=== PATIENT | female | born 1970 | race Caucasian/White ===

== ENCOUNTER 2022-03-16 22:14 | Emergency (ER) | payer SELFPAY ==
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
[2022-03-16 22:37] VITALS: BP 124/88; PULSE 88; RESP 22; TEMP 37; O2SAT 99
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
== END 2022-03-16 23:08 | disposition left against medical advice (07) ==
PROVIDERS: Emergency Provider Physician Assistant
DX: M79.604 Pain in right leg (principal); V09.9XXA Pedestrian injured in unspecified transport accident, initial encounter; Z53.29 Procedure and treatment not carried out because of patient's decision for other reasons; F10.10 Alcohol abuse, uncomplicated; R45.1 Restlessness and agitation
CPT/HCPCS: 99285; 99283

== ENCOUNTER 2022-06-26 00:38 | Outpatient (CLI) | payer MEDICAID, SELFPAY ==
--- NOTE | 2022-06-26 08:30 | DI.MAMMO_ITS ---
Exam(s) MAMMO SCREENING EXAM: MAMMO SCREENING CLINICAL HISTORY: screening,Z12.39 TECHNIQUE: Mammograms were interpreted according to the usual protocol including computer analysis w ith CAD system, tomosynthesis and C-view imaging. COMPARISON: [facility] MAMMO DIAGNOSTIC TAMARA BILATERAL from 10/28/2018 US US BREAST DIAGNOSTIC RIGHT LIMITED from 02/26/2020 [facility] MAMMO DIAGNOSTIC TAMARA BILATERAL from 02/26/2020 MG Tamara Biopsy, RLM from 03/05/2020 FINDINGS: The breasts are composed of scattered fibroglandular densities, Breast Density category B. No suspicious masses or suspicious microcalcifications are seen. A nodule biopsy marker clip is agai n noted in the central right breast. It appears slightly smaller compared to prior exams. No skin thickening or abnormal axillary lymph nodes are seen. There has been no significant change from prior exams. IMPRESSION: BI-RADS Cat 2 - Benign Findings Yearly screening mammography is recommended. Breast Density - Category B, scattered fibroglandular densities. A negative radiographic report should not delay biopsy if a dominant or clinically suspicious mass is present. Up to ten percent of cancers are not identified on mammography. A negative report may reinforce clinical impression. Adenosis and dense breasts may obscure an underlying neoplasm. False positive reports average 6 to 10%. Patient will receive a letter notifying them of these results.
== END 2022-06-26 00:58 ==
LOC: DI 00:38
PROVIDERS: PCP Nurse Practitioner Family; Visit Provider Nurse Practitioner Family
DX: Z12.31 Encounter for screening mammogram for malignant neoplasm of breast (principal)
CPT/HCPCS: 77063; 77067

== ENCOUNTER 2022-09-12 02:00 | Outpatient (CLI) | payer MEDICAID, SELFPAY ==
[2022-09-12 12:54] LABS: Abs Immature Grans 0.03 10^3/uL (0.0-0.06); Absolute Basophil Count 0.08 10^3/uL (0.0-0.2); Absolute Eosinophil Count 0.18 10^3/uL (0.0-0.7); Absolute Lymphocyte Count 1.93 10^3/uL (1.2-3.4); Absolute Monocyte Count 0.51 10^3/uL (0.1-0.8); Absolute Neutrophil Count 4.74 10^3/uL (1.2-6.7); Basophils % 1.1; Eosinophils % 2.4; HCT 42.3 % (36.0-46.0); HGB 14.4 g/dL (11.2-15.7); Immature Grans % 0.4; Lymphocytes % 25.8; MCH 31.8 pg (27.0-33.0); MCV 93 fL (80-95); MPV 10.7 fL (8.0-11.0); Monocytes % 6.8; Neutrophils % 63.5; Platelet Count 297 10^3/uL (130-400); RBC 4.53 10^6/uL (3.93-5.22); RDW 13.9 % (11.7-14.6); RDW-SD 47.4 fL; WBC 7.47 10^3/uL (4.4-10.8)
[2022-09-12 14:53] LABS: ALT 25 U/L (14-59); AST 15 U/L (15-37); Albumin 3.7 g/dL (3.4-5.0); Alkaline Phosphatase 48 U/L (46-116); BUN 23 mg/dL (7-18); Bilirubin, Total 0.5 mg/dL (0.2-1.0); Calcium 9.1 mg/dL (8.5-10.1); Calculated LDL 67 mg/dL (<100); Chloride 106 mmol/L (98-107); Cholesterol 161 mg/dL (<200); Estimated GFR 68.21 (mL/min/1.73m2); Glucose 103 mg/dL (74-106); HDL Cholesterol 75 mg/dL (40-60); Potassium 4.6 mmol/L (3.5-5.1); Sodium 141 mmol/L (136-145); TSH (W/Ref FT4) 2.17 uIU/mL (0.36-3.74); Total Protein 7.3 g/dL (6.4-8.2); Triglyceride 99 mg/dL (<150)
== END 2022-09-12 02:01 | disposition home or self-care (01) ==
LOC: LOS 02:00
PROVIDERS: PCP Nurse Practitioner Family; Visit Provider Nurse Practitioner Family
DX: Z13.1 Encounter for screening for diabetes mellitus (principal); F32.A Depression, unspecified; F41.9 Anxiety disorder, unspecified; Z76.89 Persons encountering health services in other specified circumstances; Z87.898 Personal history of other specified conditions; Z13.220 Encounter for screening for lipoid disorders
CPT/HCPCS: 36415; 80053; 80061; 84443; 85025

== ENCOUNTER 2023-05-03 06:16 | Day surgery (SDC) | payer MEDICAID, SELFPAY ==
--- NOTE | 2023-05-02 18:41 | HPE_ITS ---
Assessment and Plan Assessment and plan (1) Screen for colon cancer: Status: Acute Assessment and plan: We reviewed the plan for a screening colonoscopy again today, including the risks and the benefits of the procedure. History of Present Illness History of Present Illness Chief Complaint: screening colonoscopy Narrative: Narda is 52 years old with average risk for colon cancer. She needs her first screening colonoscopy. Since her last visit in November, she did have right-sided shoulder surgery, which went well and she is made a full recovery. There have been no other significant interval changes since her last visit. PFSH All Active Problems Cervicalgia (Acute) Screen for colon cancer (Acute) ADHD (attention deficit hyperactivity disorder), combined type (Acute) Screening for hyperlipidemia (Acute) 08/2022 labs: unable to calculate 10-year ASCVD risk due to LDL <70 Right shoulder pain (Acute) Bipolar disorder (Acute) Per pt report, previous dx from Psychiatry Chronic neck pain (Acute) MRI 08/08/18 - Worsening cervical spondylosis since 2011 causing mild canal stenosis at C5/6 and C6/7. Multilevel foraminal stenoses including mod bilat foraminal stenoses at C4/5 and mild to mod bilat foraminal stenoses at C5/6 PTSD (post-traumatic stress disorder) (Acute) PCOS (polycystic ovarian syndrome) (Acute) Gastroesophageal reflux disease (Chronic) EGD 11/06/17 ([facility]): gastritis Medical History Bursal cyst of olecranon Alcohol use disorder 05/2022: Pt reports she quit in 2014 Surgical History History of arthroscopy of right shoulder (12/22/22) [facility] Dr Vanegas acromioplasty, biceps tenodesis Hx of right breast biopsy (03/05/20) Following abnormal mammo 02/26/20. No carcinoma seen. Recommended annual mammo Status post ear surgery Status post anterior cruciate ligament surgery (04/07/20) Status post ovarian cystectomy Status post appendectomy Family History Maternal Grandfather Cancer Liver Father Diabetes Alcohol use disorder Dementia Bipolar disorder Mother Substance use disorder Bipolar disorder Social History Smoking/Tobacco Use Status: Former Tobacco Use Quit Date: 03/19/98 Tobacco: How many years used: 12 Smoking risk assessment performed?: Yes Alcohol Intake: former Details: 05/2022: Pt reports she had EtOH issue in the past; quit 2014 Drug use: Never Substance use type: does not use and other Adopted: No Caregiver/Support person: No Foster care: No Household members: none Housing: house Number of Children: 1 Education Level: college current occupation: unemployed Pets and animals: Yes Pets and animals: cat(s) and dog(s) Sexually active: No Do you think of yourself as: straight/heterosexual Current gender identity: female What is your relationship status?: never How often do you talk on the phone with friends or family?: once per week How often do you get together with friends or relatives?: never Do you belong to any clubs or organized social groups?: no Panel score (0-1 are the most socially isolated patients): 0 What type of physical activity do you participate in: walking Duration: 15-30 minutes/day Frequency: 1-2 times per week Maricarmen/Spiritism: Confucianism Special maricarmen needs: No Seatbelt use: always Helmet use: Yes Do you feel safe at home: Yes Do you feel safe in your relationship?: Yes Meds Allergies and Home Medications Allergies Allergy/AdvReac Type Severity Reaction Status Date / Time No Known Allergies Allergy Verified 05/03/23 06:36 Home Medications Medication Instructions Recorded Confirmed Type famotidine 20 mg tablet 20 mg PO BID #180 tab-caps 06/07/22 05/03/23 Rx aripiprazole 5 mg tablet (Abilify) 5 mg PO DAILY #30 tabs 08/02/22 05/03/23 Rx dextroamphetamine-amphetamine ER 20 mg PO DAILY 10/06/22 05/03/23 History 20 mg 24hr capsule,extend release (Adderall XR) gabapentin 300 mg capsule See Rx Instructions PO TID #360 02/13/23 05/03/23 Rx caps cyclobenzaprine 5 mg tablet 5 mg PO TID PRN muscle spasm 04/12/23 05/03/23 History Exam Const General: cooperative, healthy appearing and not in acute distress Neck Neck: normal visual inspection, no lymphadenopathy and supple Resp Effort & Inspection: normal respiratory effort Auscultation: clear to auscultation bilaterally Cardio Jugular venous pressure: no JVD Rate: regular rate Rhythm: regular rhythm Heart Sounds: S1 normal and S2 normal GI Inspection: normal to inspection Palpation: soft, no guarding, no hernias and nontender Percussion: normal to percussion Auscultation: normal bowel sounds Neuro General: patient alert, patient awake and patient oriented x3 Psych Appearance: grossly normal
--- NOTE | 2023-05-02 18:43 | COLE_ITS ---
Date of service: 05/03/23 Time of Service: 08:40 Colonoscopy Report Date of procedure: 05/03/23 Pre-op diagnosis general: screening colonoscopy Post-op diagnosis procedure note: other (Diverticulosis, incomplete colonoscopy) Procedure: Incomplete colonoscopy Surgeon: John Garcia Anesthesia Type: General:No Airway Estimated blood loss (mL): 0 Pathology: none sent Complications: None Disposition: same day Indications: Narda is a 52 year old woman who is here for her first screening colonocsopy Prep: Miralax/Dulcolax Procedure Start Time: 07:58 Procedure End Time: 08:29 Findings: Incomplete colonoscopy due to inadequate preparation Procedure Description: After the induction of anesthesia, and with the patient in left lateral decubitus position, I began by performing an external anorectal exam.? Perineum and skin were normal, as was the anal verge.? There was no evidence of external hemorrhoids.? Next, I performed a digital rectal exam.? I did not appreciate any abnormal findings.? Next, I advanced a colonoscope into the rectal vault.? I performed retroflexion.? There are grade 1 internal hemorrhoids.? Using insufflation, I then advanced the colonoscope beyond the rectal folds and into the sigmoid colon before advancing towards the cecum.? The quality of the prep was poor.? There was some cecal diverticulosis. During introduction of the camera, the suction port became clogged with stool. The colonoscope was exchanged for a new one. Again, it was carefully advanced through the rectum and sigmoid colon, and over to the cecum. The ileocecal valve was clearly identified. But there was significant contamination with stool along the entire length of the colon, with pooling of solid and liquid stool in the cecal vault. It was impossible to identify the confluence of the tenia, or the origin of the appendix. Despite several attempts at irrigation and evacuation, adequate visualization was not obtained. Furthermore, the second scope also became clogged with stool. At this point, it was clear that we would not be able to conduct an adequate examination of the colon. Therefore, the camera was carefully retracted along the length of the colon and removed. Patient was then allowed awaken from the anesthetic and transferred back to the day surgery unit. [place] Bowel Prep [place] Bowel Prep Right Colon: 0 Left Colon: 0 Transverse Colon: 1 Total Score: 1
--- NOTE | 2023-05-02 18:43 | W.PM.DSUDISC ---
Date of service: 05/03/23 Time of Service: 08:38 Discharge Plan Disposition Patient Disposition: Home Condition: Good Discharge Details Reason For Visit: screening colonoscopy Attending Provider: John Garcia Primary Care Provider: Fadi Cade Home Meds and New Rx's Prescriptions: Continued famotidine 20 mg tablet 20 mg PO BID Qty: 180 3RF aripiprazole [Abilify] 5 mg tablet 5 mg PO DAILY Qty: 30 0RF gabapentin 300 mg capsule See Rx Instructions PO TID Qty: 360 3RF Rx Instructions: t1 tab BID, then t2 tabs qhs orally three times a day; dextroamphetamine-amphetamine [Adderall XR] 20 mg capsule,extended release 24hr 20 mg PO DAILY Rx Instructions: 10/06/22 per Nasrin NOTE 09/20/22 JUANA cyclobenzaprine 5 mg tablet 5 mg PO TID PRN (Reason: muscle spasm) Discharge Instructions Additional Instructions: deidra Laboy to tell you that we were not able to complete your colonoscopy today. Although we could get the camera to where we need to be, the contamination with stool made it impossible to do a complete and thorough evaluation. You may have a little bit of gas left behind from the colonoscopy itself, this typically causes a little bit of cramping, but passing the gas at your backside is the best way to relieve it. My office will be in touch regarding rescheduling the colonoscopy, and I think we should be very careful to maintain a clear liquid diet leading up to it. It would probably be beneficial to actually do 2 full days of clear liquids prior to taking the medications for your preparation. 1. If tolerated, consume a soft, low fiber diet for 1-2 days. 2[address] Do not drive, drink alcohol, operate machinery, make critical decisions, or do activities that require coordination or balance for 24 hours. 3. Because air was put into your colon during the procedure, expelling air from your rectum (passing gas or farting) is normal. 4. You may not have a bowel movement for 1-3 days because of the colonoscopy prep. This is normal. 5. Go directly to the emergency room if you notice any of the following: Develop chills (warm to touch), or if you have a thermometer and your temperature is above 101 Difficulty breathing or difficultly swallowing Persistent vomiting Severe abdominal pain, other than gas cramps Severe chest pain Black, tarry stools Any bleeding ? exceeding one tablespoon 6. Call your physician if the site where your intravenous was started becomes red, swollen, painful, and warm to touch. 7. Your physician has reviewed your pre-procedure medications. Please continue to take those medications as previously ordered. You will be given specific information/education regarding any changes to your medications before leaving. Activity:: Activity as Tolerated Diet:: As Tolerated Discharge Orders Discharge Orders: Discharge Order (Routine); Ordered 05/02/23 Ordered By: John Garcia DS: Diagnosis Discharge Diagnosis (1) Screen for colon cancer: Status: Acute Asessment and Plan: Incomplete colonoscopy due to inadequate bowel prep, will be rescheduled
[2023-05-03 06:38] VITALS: BP 139/89; PULSE 77; RESP 16; TEMP 36.6; O2SAT 96
[2023-05-03] MEDS: Lactated Ringers 1,000 ML 80 ML IV (06:43)
--- NOTE | 2023-05-03 07:45 | W.ANESPRE ---
General Info Date of Service Date Performed: 05/03/23 Height: 5 ft 5.5 in Weight: 85.6 kg Body Mass Index (BMI): 30.9 Surgical Procedure: Operation Date: 05/03/23 07:35 Proposed Procedure Side Surgeon jaylene Garcia MD Meds Allergies and Home Medications Allergies Allergy/AdvReac Type Severity Reaction Status Date / Time No Known Allergies Allergy Verified 05/03/23 06:36 Home Medication Medication Instructions Recorded famotidine 20 mg tablet 20 mg PO BID #180 tab-caps 06/07/22 aripiprazole 5 mg tablet (Abilify) 5 mg PO DAILY #30 tabs 08/02/22 dextroamphetamine-amphetamine ER 20 mg PO DAILY 10/06/22 20 mg 24hr capsule,extend release (Adderall XR) gabapentin 300 mg capsule See Rx Instructions PO TID #360 02/13/23 caps cyclobenzaprine 5 mg tablet 5 mg PO TID PRN muscle spasm 04/12/23 Current Visit Medications: Current Medications Generic Name Dose Route Start Last Admin Trade Name Alpeshq PRN Reason Stop Dose Admin Hyoscyamine Sulfate 0.125 mg 05/02/23 18:45 Hyoscyamine 0.125 Mg Sl/Oral/Chew SL 06/01/23 18:44 DIRECTED PRN Ringer's Solution 1,000 mls @ 80 mls/hr 05/03/23 06:00 05/03/23 06:43 IV 05/03/23 23:59 80 mls/hr INFUSION RY Administration IV Miscellaneous Supplies 1 each 05/03/23 06:00 Iv Access IV 05/03/23 23:59 DIRECTED RY Ondansetron HCl 4 mg 05/02/23 18:45 Ondansetron 4 Mg/2 Ml Vial IVP 06/01/23 18:44 Q4H PRN PRN Nausea / Vomiting Sodium Chloride 0 ml 05/03/23 06:00 Normal Saline Flush 10 Ml Syr IV 05/03/23 23:59 PRN PRN Sodium Chloride 0 ml 05/03/23 06:00 Normal Saline 10 Ml Vial IJ 05/03/23 23:59 DIRECTED PRN Sterile Water 0 ml 05/03/23 06:00 Water,Injection,Sterile 10 Ml Vial IJ 05/03/23 23:59 DIRECTED PRN PFSH Active Problems Active Problems: Problem Status Onset Code Cervicalgia M54.2 Screen for colon cancer Z12.11 ADHD (attention deficit hyperactivity disorder), combined type F90.2 Screening for hyperlipidemia Z13.220 Right shoulder pain M25.511 Bipolar disorder F31.9 Chronic neck pain M54.2, G89.29 PTSD (post-traumatic stress disorder) F43.10 PCOS (polycystic ovarian syndrome) E28.2 Gastroesophageal reflux disease K21.9 Medical History Medical History Bursal cyst of olecranon Alcohol use disorder 05/2022: Pt reports she quit in 2014 Medical History Comments:: Pt. states no potential triggers for PTSD Surgical History Surgical History History of arthroscopy of right shoulder (12/22/22) [facility] Dr Vanegas acromioplasty, biceps tenodesis Hx of right breast biopsy (03/05/20) Following abnormal mammo 02/26/20. No carcinoma seen. Recommended annual mammo Status post ear surgery Status post anterior cruciate ligament surgery (04/07/20) Status post ovarian cystectomy Status post appendectomy Tobacco Smoking/Tobacco Use Status: Former Tobacco Use Passive smoking exposure: Yes Alcohol Alcohol Intake: former Details: 05/2022: Pt reports she had EtOH issue in the past; quit 2014 Substance Use Substance use: Never Substance use type: does not use and other Vital Signs and Lab Results Vital Signs Most Recent Vital Signs in EMR: Most Recent Vital Signs Temp Pulse Resp BP Pulse Ox 36.6 C 77 16 139/89 96 05/03/23 06:38 05/03/23 06:38 05/03/23 06:38 05/03/23 06:38 05/03/23 06:38 Lab Results Blood Type / Crossmatch: No Data to Display Complete Blood Count: No Data to Display Complete Metabolic Panel: No Data to Display Liver Function Panel: No Data to Display Coagulation Panel: No Data to Display Cardiac Panel: No Data to Display Arterial Blood Gas: No Data to Display Venous Blood Gas: No Data to Display Pancreas Panel: No Data to Display Thyroid Panel: No Data to Display Infectious Disease: No Data to Display Blood Cultures: No Data to Display Toxicology Panel: No Data to Display Panel: No Data to Display Anesthesia Assessment and Plan Anesthesia History Personal History: No History of Anesthesia Complications Family History: No Family History of Anesthesia Complications Exercise Tolerance Exercise Tolerance: Metabolic Equivalents>4 Pertinent Negatives Pertinent Negatives: No Symptoms of GERD, No Major Cardiovascular Symptoms or Complaints and No Major Pulmonary Symptoms or Complaints Cardiac & Pulmonary Exam Cardiac Exam: Normal S1/S2 Heart Sounds Pulmonary Exam: Clear Bilateral Breath Sounds Implantable Cardiac Device Does patient have a Pacemaker or an ICD?: No Airway Exam Known Difficult Airway: No Mallampati Class: 1 Mouth Opening: Normal (> 3cm) Thyromental Distance: Greater than 3 cm Neck Range of Motion: Full ROM Neck Circumference: Normal Teeth Condition: Normal Dentition ASA Classification ASA Score: ASA 2 Emergency Case?: No NPO Status NPO Status: NPO Clears >2 hours, Solids >8 hours Status Status: Not Relevant due to Medical History Anesthesia Plan Resuscitation Status: Full Code Anesthesia Technique: General Anesthesia Airway Planned: Natural Airway Monitors Used: Standard Monitors
[2023-05-03 07:47] VITALS: BMI 30.9
[2023-05-03 08:36] VITALS: BP 129/90; PULSE 82; RESP 16; TEMP 36.5; O2SAT 98
--- NOTE | 2023-05-03 08:45 | W.ANESPOSTOP ---
Postoperative Evaluation Date, Time and Location Date Performed: 05/03/23 Time Performed: 08:45 Patient Location: Day Surgery Unit Vital Signs Most Recent Imported Vital Signs: Most Recent Vital Signs Temp Pulse Resp BP Pulse Ox 36.5 C 82 16 129/90 98 05/03/23 08:36 05/03/23 08:36 05/03/23 08:36 05/03/23 08:36 05/03/23 08:36 Pain Score Most Recent Pain Score: Most Recent Pain Score Pain Level 0 05/03/23 08:36 Assessment Mental Status: Awake (Alert & Oriented to Patient Baseline) Airway and Respiratory Function: Patent airway with normal (patient baseline) respiratory exam Cardiovascular Function: Hemodynamically Stable Hydration Status: Adequately Hydrated Nausea & Vomiting: No Nausea or Vomiting Pain: Pt. Denies Any Pain Peripheral Nerve Block: Patient did not receive a nerve block Postoperative Comments:: Inadequate bowel prep. Procedure aborted
[2023-05-03 09:02] VITALS: BP 128/83; PULSE 72; RESP 16; TEMP 36.4; O2SAT 96
== END 2023-05-03 09:26 | disposition home or self-care (01) ==
LOC: SUR 06:16
PROVIDERS: PCP Family Medicine; Visit Provider Surgery
PROC: 0DJD8ZZ Inspection of Lower Intestinal Tract, Via Natural or Artificial Opening Endoscopic (ICD-10-PCS; CPT 45378; principal; 2023-05-03 07:30)
DX: Z12.11 Encounter for screening for malignant neoplasm of colon (principal)
CPT/HCPCS: 45378; J2001; J2704

== ENCOUNTER 2023-06-15 09:08 | Day surgery (SDC) | payer MEDICAID, SELFPAY ==
--- NOTE | 2023-06-14 14:42 | W.COLOREPORT ---
Date of service: 06/15/23 Time of Service: 11:28 Colonoscopy Report Date of procedure: 06/15/23 Pre-op diagnosis general: incomplete CE for CRC screening Post-op diagnosis procedure note: same (alexander- diverticula/ grade 2 internal hemorrhoids/ulceration of the right colon) Procedure: Crohn's disease versus other Surgeon: Cynthia Cabrales Anesthesia Type: General:No Airway Pathology: other Complications: None Disposition: same day Prep: Miralax/Dulcolax Retraction Time: 35 Findings: ulcerations from cecum- 70cm. Procedure Description: After informed consent was obtained the patient was taken to the procedure room and placed in a left decubitous position. Monitors were applied and a time out was done. The patients name, date of , procedure, allergies to medications and metal in their body was reviewed. The patient was then sedated. Once sedated and comfortable a rectal exam was done. External exam was normal. Internal exam revealed a normal sphincter tone and no palpable masses. The scope was then introduced and retrofelexed. Grade II internal hemorrhoids x 3 columns were identified. The scope was then advanced to the cecum with difficulty. The colon is very tortuous and redundant. The TI and appendiceal orifice were identified. From the cecum to 70 cm there were patchy areas of ulceration and erythema. This tissue was very firm and woody. Multiple biopsies are taken. The tissue was quite friable. I am unable to intubate the terminal ileum. Patient does have alexander diverticula from the sigmoid all the way to the cecum. There are multiple diverticula that have inspissated stool. There is no signs of bleeding or infection. There are no polyps visualized today. The scope was then slowly retracted over 35 minutes back into the rectum. The scope was removed and the patient was woken up and taken back to Same day surgery in stable condition. The patient will have lab work and a CT today. The patient tolerated the procedure well and there were no immediate complications. Follow up: The patient should follow up in clinic next Sunday to review biopsy's and develop a treatment plan.
--- NOTE | 2023-06-14 14:43 | PDOC.DSDIS_ITS ---
Date of service: 06/15/23 Time of Service: 11:32 Discharge Plan Disposition Patient Disposition: Home Condition: Good Discharge Details Reason For Visit: colon cancer screening Attending Provider: Cynthia Cabrales Primary Care Provider: Fadi Cade Home Meds and New Rx's Prescriptions: Continued aripiprazole [Abilify] 5 mg tablet 5 mg PO DAILY Qty: 30 0RF gabapentin 300 mg capsule See Rx Instructions PO TID Qty: 360 3RF Rx Instructions: t1 tab BID, then t2 tabs qhs orally three times a day; cyclobenzaprine 5 mg tablet 5 mg PO TID PRN (Reason: muscle spasm) famotidine 20 mg tablet 20 mg PO BID Qty: 180 3RF dextroamphetamine-amphetamine [Adderall XR] 20 mg capsule,extended release 24hr 30 mg PO DAILY trazodone 50 mg tablet 25 mg PO DIRECTED Patient Comments: TAKE 1/2 TABLET BY MOUTH EVERY NIGHT AT BEDTIME NEEDED Discontinued bisacodyl [Dulcolax (bisacodyl)] 5 mg tablet,delayed release (DR/EC) 5 mg PO ONCE Qty: 8 0RF Rx Instructions: Take per colonoscopy instructions provided by ordering providers office polyethylene glycol 3350 17 gram/dose powder 17 g PO ONCE Qty: 238 0RF Rx Instructions: Take per colonoscopy instructions provided by ordering providers office Discharge Instructions Additional Instructions: DSU Colonoscopy Post- Op Instructions Instructions for Everyone who is given Anesthesia: For your safety, please do the following for the next twenty-four (24) hours: *Do Not operate a motor vehicle (car, truck, motorcycle, etc.) *Do Not drink alcoholic beverages or use any recreational drugs for the first 24 hours or while taking pain medications. The medications in your body may have a reaction that can be dangerous. *Do Not make any important decisions or sign any important papers. Findings: Diverticulosis: It is recommended that you start a fiber supplement daily such as Metamucil or Citrucel Ulcerations of colon: Crohn's vs cancer Follow-up with Dr. Cabrales June 1. No lifting over 20 pounds or strenuous activity for the first 24 hours after your procedure. After 24 hours there are no restrictions on your activity but you may feel fatigued for a few days. 2. After you arrive home you may have a light meal and return to your normal diet as you can tolerate it without feeling sick to your stomach. 3. You may have a bloated, gaseous feeling in your belly (abdomen) after a colonoscopy. Passing gas and belching will help. Walking or lying down on your left side with your knees flexed may relieve the discomfort. Call the office at [phone] (Office) or [phone] (Hospital) right away if you notice any of the following: a.Vomiting of blood or ?coffee ground stools?. b.Rectal bleeding 1Tbsp, blood clots or continuous bleeding. c.Severe belly (abdominal) pain. d.A hard distended belly (abdomen) and an inability to pass gas. 4. Please don?t expect to have a normal BM (bowel movement) for 2-3 days after your procedure. 5. If there are questions regarding the findings of your procedure, please contact your doctor 6. If you are unable to contact your doctor with a problem, contact the hospital at [phone]. 7. Continue all your regular medications unless directed otherwise. I understand the above instructions and have no questions. Signature of Patient or Adult Escort Name of Responsible Adult Escort Signature of Nurse Date/Time Stand Alone Forms: Anesthesia Discharge InstGiuliano, Humza Mendoza (DSU) Activity:: See above Diet:: See above Discharge Orders Discharge Orders: Discharge Order (Routine); Ordered 06/15/23 Ordered By: Cynthia Cabrales DS: Diagnosis Discharge Diagnosis (1) PTSD (post-traumatic stress disorder): Status: Acute (2) Bipolar disorder: Status: Acute (3) ADHD (attention deficit hyperactivity disorder), combined type: Status: Acute (4) PCOS (polycystic ovarian syndrome): Status: Acute (5) Gastroesophageal reflux disease: Status: Chronic (6) Screen for colon cancer: Status: Acute Asessment and Plan: The patient is seen and examined after their colonoscopy.? The patient has been able to pass gas.? They are not having abdominal pain.? They have been able to tolerate liquids and a snack.? They do not have any nausea or vomiting.? They are not having any chest pain or shortness of breath.??? They are not having any rectal bleeding. Their vital signs have been stable-see nursing notes. We discussed findings during their colonoscopy, and any biopsies that were done/polyps that were removed. The patient will be sent a letter with any biopsy results, and when to repeat the colonoscopy.-see discharge instructions. Patient was given explicit instructions to follow-up regarding colonoscopy-refer to discharge instructions.? We reviewed resumption of medications. Patient verbalized understanding and discharged in stable and satisfactory c ondition- See nursing notes. (7) Borderline personality disorder: (8) Alcohol use disorder: (9) Screening for malignant neoplasm of colon performed: Status: Acute (10) Pancolonic diverticulosis: Status: Acute (11) Aphthous ulceration of colon: Status: Acute (12) Grade II internal hemorrhoids: Status: Acute
[2023-06-15 09:48] VITALS: BP 136/93; PULSE 87; RESP 16; TEMP 36.6; O2SAT 97
[2023-06-15] MEDS: Lactated Ringers 1,000 ML 80 ML IV (09:52)
--- NOTE | 2023-06-15 09:54 | ANES.PREOP_ITS ---
General Info Date of Service Date Performed: 06/15/23 Height: 5 ft 5 in Weight: 83.9 kg Body Mass Index (BMI): 30.7 Surgical Procedure: Operation Date: 06/15/23 09:50 Proposed Procedure Side Surgeon jaylene Cabrales, DO Meds Allergies and Home Medications Allergies Allergy/AdvReac Type Severity Reaction Status Date / Time No Known Allergies Allergy Verified 06/15/23 09:28 Home Medication Medication Instructions Recorded aripiprazole 5 mg tablet (Abilify) 5 mg PO DAILY #30 tabs 08/02/22 gabapentin 300 mg capsule See Rx Instructions PO TID #360 02/13/23 caps cyclobenzaprine 5 mg tablet 5 mg PO TID PRN muscle spasm 04/12/23 famotidine 20 mg tablet 20 mg PO BID #180 tab-caps 06/11/23 dextroamphetamine-amphetamine ER 30 mg PO DAILY 06/13/23 20 mg 24hr capsule,extend release (Adderall XR) trazodone 50 mg tablet 25 mg PO DIRECTED 06/14/23 Current Visit Medications: Current Medications Generic Name Dose Route Start Last Admin Trade Name Freq PRN Reason Stop Dose Admin Hyoscyamine Sulfate 0.125 mg 06/15/23 02:35 Hyoscyamine 0.125 Mg Sl/Oral/Chew SL 07/15/23 02:34 DIRECTED PRN Ringer's Solution 1,000 mls @ 80 mls/hr 06/15/23 06:00 06/15/23 09:52 IV 06/15/23 23:59 80 mls/hr INFUSION RY Administration IV Miscellaneous Supplies 1 each 06/15/23 06:00 Iv Access IV 06/15/23 23:59 DIRECTED RY Ondansetron HCl 4 mg 06/15/23 02:35 Ondansetron 4 Mg/2 Ml Vial IVP 07/15/23 02:34 Q4H PRN PRN Nausea / Vomiting Sodium Chloride 0 ml 06/15/23 06:00 Normal Saline Flush 10 Ml Syr IV 06/15/23 23:59 PRN PRN Sodium Chloride 0 ml 06/15/23 06:00 Normal Saline 10 Ml Vial IJ 06/15/23 23:59 DIRECTED PRN Sterile Water 0 ml 06/15/23 06:00 Water,Injection,Sterile 10 Ml Vial IJ 06/15/23 23:59 DIRECTED PRN [facility] Active Problems Active Problems: Problem Status Onset Code Screening for malignant neoplasm of colon performed Z12.11 Cervicalgia M54.2 Screen for colon cancer Z12.11 ADHD (attention deficit hyperactivity disorder), combined type F90.2 Screening for hyperlipidemia Z13.220 Right shoulder pain M25.511 Bipolar disorder F31.9 Chronic neck pain M54.2, G89.29 PTSD (post-traumatic stress disorder) F43.10 PCOS (polycystic ovarian syndrome) E28.2 Gastroesophageal reflux disease K21.9 Medical History Medical History Borderline personality disorder Bursal cyst of olecranon Alcohol use disorder 05/2022: Pt reports she quit in 2014 Medical History Comments:: Pt. states no potential triggers for PTSD Surgical History Surgical History History of colonoscopy (~04/2023) History of arthroscopy of right shoulder (12/22/22) [facility] Dr Vanegas acromioplasty, biceps tenodesis Hx of right breast biopsy (03/05/20) Following abnormal mammo 02/26/20. No carcinoma seen. Recommended annual mammo Status post ear surgery Status post anterior cruciate ligament surgery (04/07/20) Status post ovarian cystectomy Status post appendectomy Tobacco Smoking/Tobacco Use Status: Former Tobacco Use Passive smoking exposure: Yes Alcohol Alcohol Intake: former Details: 05/2022: Pt reports she had EtOH issue in the past; quit 2014 Substance Use Substance use: Never Substance use type: does not use and other Vital Signs and Lab Results Vital Signs Most Recent Vital Signs in EMR: Most Recent Vital Signs Temp Pulse Resp BP Pulse Ox 36.6 C 87 16 136/93 H 97 06/15/23 09:48 06/15/23 09:48 06/15/23 09:48 06/15/23 09:48 06/15/23 09:48 Lab Results Blood Type / Crossmatch: No Data to Display Complete Blood Count: No Data to Display Complete Metabolic Panel: No Data to Display Liver Function Panel: No Data to Display Coagulation Panel: No Data to Display Cardiac Panel: No Data to Display Arterial Blood Gas: No Data to Display Venous Blood Gas: No Data to Display Pancreas Panel: No Data to Display Thyroid Panel: No Data to Display Infectious Disease: No Data to Display Blood Cultures: No Data to Display Toxicology Panel: No Data to Display Panel: No Data to Display Anesthesia Assessment and Plan Anesthesia History Personal History: No History of Anesthesia Complications Family History: No Family History of Anesthesia Complications Exercise Tolerance Exercise Tolerance: Metabolic Equivalents>4 Pertinent Negatives Pertinent Negatives: No Symptoms of GERD, No Major Cardiovascular Symptoms or Complaints and No Major Pulmonary Symptoms or Complaints Cardiac & Pulmonary Exam Cardiac Exam: Normal S1/S2 Heart Sounds Pulmonary Exam: Clear Bilateral Breath Sounds Implantable Cardiac Device Does patient have a Pacemaker or an ICD?: No Airway Exam Known Difficult Airway: No Mallampati Class: 1 Mouth Opening: Normal (> 3cm) Thyromental Distance: Greater than 3 cm Neck Range of Motion: Full ROM Neck Circumference: Normal Teeth Condition: Normal Dentition ASA Classification ASA Score: ASA 2 Emergency Case?: No NPO Status NPO Status: NPO Clears >2 hours, Solids >8 hours Status Status: Not Relevant due to Medical History Anesthesia Plan Resuscitation Status: Full Code Anesthesia Technique: General Anesthesia Airway Planned: Natural Airway Monitors Used: Standard Monitors
[2023-06-15 09:58] VITALS: BMI 30.7
--- NOTE | 2023-06-15 10:42 | BOWEL_PTH ---
PATIENT: Narda Arevalo LOC: [facility] U#:[id number] AGE/SX: 53/F ROOM: RE06/15/[address]: Cynthia Cabrales : 1970 BED: DIS: 06/15/2023 SPEC #: [id number] RECD: 06/15/23 12:49 STATUS: RAFAELA REQ #: [id number] DERECK: 06/15/23 10:[address]: Cynthia Cabrales DEPT: Surgical Specimen RECD BY: Brionna Zhang ENTERED: 06/15/23 12:50 SP TYPE: Bowel OTHR DR: Fadi Cade DO Tissues: 1 - BIOPSY BOWEL 2 - BIOPSY BOWEL 3 - BIOPSY BOWEL 4 - BIOPSY BOWEL 5 - BIOPSY BOWEL 6 - BIOPSY BOWEL Procedures: GROSS AND MICRO LEVEL 4 Comments: [id number]
[2023-06-15] MEDS: Endoscopic Tattoo 5 ML SYR IJ (10:58)
--- NOTE | 2023-06-15 11:15 | DI.CT_ITS ---
Exam(s) CT ABDOMEN PELVIS W EXAM: CT ABDOMEN PELVIS W CLINICAL HISTORY: ulcerations in right colon. TECHNIQUE: Imaging Protocol: Axial computed tomography images with coronal and sagittal reformatted images were created and reviewed CONTRAST MATERIAL: Intravenous: Omnipaque 350 Contrast volume:100 ml Oral: yes / COMPARISON: No exams were available for comparison FINDINGS: ABDOMEN and PELVIS: Lung Bases: No acute findings. Liver: Normal density. No measurable mass. Gallbladder and biliary tract: No radiodense calculus or biliary dilation. Pancreas: Normal density. No abnormal calcifications or inflammatory process. No evidence of mass. Spleen: Normal. Kidneys: Normal size, contour and axis. No radiodense stones. No obstructive uropathy. No suspicious masses seen. Adrenal glands: No masses seen. Vasculature: Abdominal aorta non-dilated. Soft tissues: Unremarkable. Bladder: No gross wall thickening. No calculi.No focal mass. Bowel: No obstruction. Diverticulosis greatest at the sigmoid. No evidence of diverticulitis. Foc al area of wall thickening of the ascending colon. Findings could represent mass versus focal inflam mation. Some adjacent stranding in the surrounding fat. Peritoneal cavity: No ascites. No focal collection or mesenteric inflammatory response. Bones: Unremarkable for age. Reproductive organs: Uterus enlarged with multiple fibroids. Lymph nodes: Unremarkable. IMPRESSION:: Focal area of wall thickening with some surrounding stranding in the fat. Findings may represent mass versus focal area of inflammation. Colonoscopy recommended for further evaluation. Diverticulosis is also seen. RADIATION DOSE DELIVERED: Total DLP DATA REPOSITORY: All CT scans at this facility are submitted to the National Radiology Data Registry (NRDR) Dose Index Registry (DIR) with the [employer] (ACR). RADIATION OPTIMIZATION: All CT scans at this facility use at least one of these dose optimization te chniques: automated exposure control; mA and/or kV adjustment per patient size (includes targeted exa ms where dose is matched to clinical indication); or iterative reconstruction.
[2023-06-15 11:23] VITALS: BP 117/79; PULSE 72; RESP 16; TEMP 35.9; O2SAT 98
[2023-06-15 11:53] LABS: Abs Immature Grans 0.05 10^3/uL (0.0-0.06); Absolute Basophil Count 0.08 10^3/uL (0.0-0.2); Absolute Eosinophil Count 0.23 10^3/uL (0.0-0.7); Absolute Lymphocyte Count 2.23 10^3/uL (1.2-3.4); Absolute Monocyte Count 0.47 10^3/uL (0.1-0.8); Absolute Neutrophil Count 6.45 10^3/uL (1.2-6.7); Basophils % 0.8; Eosinophils % 2.4; HCT 41.9 % (36.0-46.0); HGB 14.1 g/dL (11.2-15.7); Immature Grans % 0.5; Lymphocytes % 23.4; MCH 31.9 pg (27.0-33.0); MCHC 33.7 % (32.0-36.0); MCV 95 fL (80-95); MPV 10.4 fL (8.0-11.0); Monocytes % 4.9; Platelet Count 307 10^3/uL (130-400); RBC 4.42 10^6/uL (3.93-5.22); RDW 13.2 % (11.7-14.6); RDW-SD 46.1 fL; WBC 9.51 10^3/uL (4.4-10.8)
[2023-06-15 11:57] VITALS: BP 113/83; PULSE 71; RESP 18; TEMP 36.1; O2SAT 98
[2023-06-15] MEDS: Breeza Beverage 473 ML BTL PO ×2 (12:00→12:23)
[2023-06-15] MEDS: Omnipaque 350 MG/ML 50 ML BTL PO (12:01)
[2023-06-15 12:06] LABS: Anion Gap 10.1 mmol/L (3-11); BUN 19 mg/dL (7-18); CO2 23.9 mmol/L (21.0-32.0); CREATININE 0.7 mg/dL (0.55-1.02); Calcium 9.4 mg/dL (8.5-10.1); Chloride 105 mmol/L (98-107); Glucose 93 mg/dL (74-106); Sodium 139 mmol/L (136-145)
[2023-06-15 12:07] LABS: C-Reactive Protein < 0.50 mg/dL (<or=0.5)
--- NOTE | 2023-06-15 12:19 | W.ANESPOSTOP ---
Postoperative Evaluation Date, Time and Location Date Performed: 06/15/23 Time Performed: 12:19 Patient Location: Day Surgery Unit Vital Signs Most Recent Imported Vital Signs: Most Recent Vital Signs Temp Pulse Resp BP Pulse Ox 36.1 C L 71 18 113/83 98 06/15/23 11:57 06/15/23 11:57 06/15/23 11:57 06/15/23 11:57 06/15/23 11:57 Pain Score Most Recent Pain Score: Most Recent Pain Score Pain Level 0 06/15/23 11:57 Assessment Mental Status: Awake (Alert & Oriented to Patient Baseline) Airway and Respiratory Function: Patent airway with normal (patient baseline) respiratory exam Cardiovascular Function: Hemodynamically Stable Hydration Status: Adequately Hydrated Nausea & Vomiting: No Nausea or Vomiting Pain: Pt. Denies Any Pain Peripheral Nerve Block: Patient did not receive a nerve block
[2023-06-15 13:02] VITALS: BP 120/79; PULSE 76; RESP 16; TEMP 36.3; O2SAT 98
[2023-06-15] MEDS: Normal Saline - Diluent 50 ML VIAL IJ (13:37)
[2023-06-15] MEDS: Omnipaque 350 MG/ML 500 ML BTL-Imaging package 100 ML IJ (13:37)
[2023-06-15 18:37] LABS: CEA 2.1 ng/mL (See Note)
[2023-06-18 14:10] LABS: ANCA Interpretation Negative (Negative)
[2023-06-18 14:12] LABS: ANA Interpretation Negative (Negative)
== END 2023-06-15 14:29 | disposition home or self-care (01) ==
LOC: SUR 09:09
PROVIDERS: PCP Family Medicine; Visit Provider Surgery
PROC: 0DJD8ZZ Inspection of Lower Intestinal Tract, Via Natural or Artificial Opening Endoscopic (ICD-10-PCS; CPT 45378; principal; 2023-06-15 09:45)
DX: Z12.11 Encounter for screening for malignant neoplasm of colon; K63.3 Ulcer of intestine; K57.30 Diverticulosis of large intestine without perforation or abscess without bleeding; K64.1 Second degree hemorrhoids; K21.9 Gastro-esophageal reflux disease without esophagitis; F31.9 Bipolar disorder, unspecified; F10.90 Alcohol use, unspecified, uncomplicated; K63.89 Other specified diseases of intestine
CPT/HCPCS: 45380; 36415; 80048; 86255; 88305; 74177; 82378; 85025; 86038; 86140; J2704; Q9967

== ENCOUNTER 2023-07-12 15:55 | Outpatient (CLI) | payer MEDICAID, SELFPAY ==
[2023-07-13 19:51] LABS: HIV-1/2 Ag & Ab Screen Negative (Negative)
[2023-07-16 12:11] LABS: HCV RNA Qualitative Undetected (Undetected)
[2023-07-16 13:48] LABS: TB Interpretation Negative (Negative); TB1 Ag minus Nil 0.01 IU/ml; TB2 Ag minus Nil 0.01 IU/mL
== END 2023-07-12 15:56 | disposition home or self-care (01) ==
LOC: LBO 15:55
PROVIDERS: PCP Family Medicine; Visit Provider Surgery
DX: K21.9 Gastro-esophageal reflux disease without esophagitis (principal)
CPT/HCPCS: 36415; 87389; 87522; 86480

== ENCOUNTER 2023-09-03 10:48 | Outpatient (CLI) | payer MEDICAID, SELFPAY ==
--- NOTE | 2023-09-03 10:45 | RT.EKG_ITS ---
APPROVED REPORT Exam: Resting ECG Reason for Exam: Pre-op exam Patient Location: O HR:83 bpm ECG Measurements Heart Rate 83 AXIS TX 142 P 12 QRSd 165 QRS 63 QT 421 T 8 QTc 495 Conclusion Sinus rhythm...normal P axis, V-rate 50- 99 Right bundle branch block...QRSd>120, terminal axis(90,270)
== END 2023-09-03 10:49 | disposition home or self-care (01) ==
LOC: DI.KIM 10:49
PROVIDERS: PCP Family Medicine; Visit Provider Family Medicine
DX: Z01.818 Encounter for other preprocedural examination (principal)
CPT/HCPCS: 93010

== ENCOUNTER 2023-09-12 01:54 | Outpatient (CLI) | payer MEDICAID, SELFPAY ==
[2023-09-12 08:37] LABS: MCV 92 fL (80-95); MPV 10.4 fL (8.0-11.0); Platelet Count 305 10^3/uL (130-400); RBC 4.37 10^6/uL (3.93-5.22); RDW 13.2 % (11.7-14.6); RDW-SD 44.2 fL; WBC 8.31 10^3/uL (4.4-10.8)
[2023-09-12 08:51] LABS: PTT Activated 25.2 sec (23.6-32.8)
[2023-09-12 08:53] LABS: ALT 24 U/L (14-59); AST 15 U/L (15-37); Albumin 4.2 g/dL (3.4-5.0); Alkaline Phosphatase 45 U/L (46-116); Anion Gap 12.7 mmol/L (3-11); BUN 12 mg/dL (7-18); Bilirubin, Total 0.58 mg/dL (0.2-1.0); CO2 24.3 mmol/L (21.0-32.0); CREATININE 0.9 mg/dL (0.55-1.02); Calcium 10.1 mg/dL (8.5-10.1); Chloride 105 mmol/L (98-107); Estimated GFR 76.92 (mL/min/1.73m2); Glucose 107 mg/dL (74-106); Potassium 3.5 mmol/L (3.5-5.1); Sodium 142 mmol/L (136-145); Total Protein 7.7 g/dL (6.4-8.2)
== END 2023-09-12 01:55 | disposition home or self-care (01) ==
LOC: LBO 01:54
PROVIDERS: PCP Family Medicine; Referring Provider Family Medicine; Visit Provider Family Medicine
DX: Z01.818 Encounter for other preprocedural examination (principal)
CPT/HCPCS: 36415; 80053; 85027; 85610; 85730

== ENCOUNTER 2023-12-17 16:12 | Outpatient (CLI) | payer MEDICAID, SELFPAY ==
[2023-12-17 16:52] LABS: Abs Immature Grans 0.02 10^3/uL (0.0-0.06); Absolute Basophil Count 0.08 10^3/uL (0.0-0.2); Absolute Eosinophil Count 0.25 10^3/uL (0.0-0.7); Absolute Lymphocyte Count 2.73 10^3/uL (1.2-3.4); Absolute Monocyte Count 0.56 10^3/uL (0.1-0.8); Absolute Neutrophil Count 4.33 10^3/uL (1.2-6.7); Eosinophils % 3.1 %; HCT 40.7 % (36.0-46.0); HGB 13.9 g/dL (11.2-15.7); Immature Grans % 0.3 %; Lymphocytes % 34.3 %; MCH 32.1 pg (27.0-33.0); MCHC 34.2 % (32.0-36.0); MCV 94 fL (80-95); MPV 10.6 fL (8.0-11.0); Neutrophils % 54.3 %; Platelet Count 325 10^3/uL (130-400); RBC 4.33 10^6/uL (3.93-5.22); RDW 13.5 % (11.7-14.6); RDW-SD 46.8 fL; WBC 7.97 10^3/uL (4.4-10.8)
[2023-12-17 17:48] LABS: C-Reactive Protein < 0.50 mg/dL (<or=0.5)
[2023-12-17 18:26] LABS: Ferritin 108 ng/mL (8-252); Folate 5.7 ng/mL (8.6-20.0); Vitamin B12 495 pg/mL (193-986)
== END 2023-12-17 16:13 | disposition home or self-care (01) ==
LOC: LBO 16:13
PROVIDERS: PCP Family Medicine; Visit Provider Surgery
DX: F31.9 Bipolar disorder, unspecified (principal); F90.2 Attention-deficit hyperactivity disorder, combined type; I45.10 Unspecified right bundle-branch block; K21.9 Gastro-esophageal reflux disease without esophagitis; K57.30 Diverticulosis of large intestine without perforation or abscess without bleeding; K50.90 Crohn's disease, unspecified, without complications
CPT/HCPCS: 36415; 82607; 82728; 82746; 85025; 86140

== ENCOUNTER 2024-01-17 03:14 | Outpatient (CLI) | payer MEDICAID, SELFPAY ==
--- NOTE | 2024-01-17 14:28 | W.NUTRFU ---
Date of service: 01/17/24 Time of Service: 13:00 Nutrition Note NOTE: Narda came in for nutrition visit regarding weight mgt and history of Crohn's. For managing Crohn's we reviewed that during flares it is good to consider easy digestible, lower fiber foods and then work back towards high fiber diet of at least 25g of fiber per day. Narda shares her symptoms are mainly pain and not related to constipation or diarrhea as much. She also experiences GERD sx's frequently and lists bread, berries and some fruits, carbonated water, celery and carrots as common offenders. She is interested in Mediterranean diet style and I supported this as a healthy diet pattern. Her aunt reportedly has celiac disease. Vitamin D and folate deficiency in her history - encouraged supplemental bcomplex and vitamin D3 and following up for labs with provider - also at risk for deficiencies in iron, vit C and zinc with her history of Crohn's. Her appt started at 1pm today - she reports no intake today besides a monster drink, coffee and a muffin. We reviewed with her history she should avoid caffeine, and carbonated beverages and we reviewed most muffins are high in sugar and kcals and won't support her weight mgt goals. Suggested Narda talk to provider about appropriateness of Celiac testing/gluten allergy. Suggested narda avoid list of foods known to trigger GERD sx's and gave list. Encouraged her to plan her day and be proactive with menus and repeatable food choices for many meals and snacks. We reviewed energy need estimated at 1903kcals and recommended ~1600kcal diet with at a daily goal of 100g protein, 25 g fiber and less than 25g added sugar. Suggested she keep diary with symptoms to pinpoint foods/categories more readily and be able to meal plan a diet that is less problematic. She took my contact info should she need more follow up or additional resources Time Spent in Nutritional Counseling and Treatment: 50 min
== END 2024-01-17 03:15 | disposition home or self-care (01) ==
LOC: DS 03:14
PROVIDERS: PCP Family Medicine; Visit Provider Dietitian, Registered
DX: Z71.3 Dietary counseling and surveillance (principal)
CPT/HCPCS: 00123; 97802

== ENCOUNTER 2024-05-28 12:42 | Outpatient (CLI) | payer MEDICAID, SELFPAY ==
--- NOTE | 2024-05-28 12:19 | DI.RAD_ITS ---
Exam(s) XR KNEE RT 4V+ EXAM: XR KNEE RT 4V+ CLINICAL HISTORY: Evaluate for osteomyleitis, on humira. TECHNIQUE: 2D digital imaging was performed of the right knee. Four views obtained. Merchant, AP, la teral and PA tunnel views were obtained. COMPARISON: No exams were available for comparison FINDINGS: BONES: No acute fracture is present. No bony destructive lesion is seen. JOINTS: The knee is normally aligned. There is a small suprapatellar joint effusion. Mild degenerati ve changes are present. SOFT TISSUE: Normal. IMPRESSION: 1. No radiographic findings to suggest osteomyelitis. 2. Small joint effusion. DATA REPOSITORY: RADIATION DOSE DELIVERED:
== END 2024-05-28 13:02 ==
LOC: DI 12:42
PROVIDERS: PCP Family Medicine; Visit Provider Family Medicine
DX: M25.561 Pain in right knee (principal)
CPT/HCPCS: 73564

== ENCOUNTER 2024-05-28 13:02 | Outpatient (CLI) | payer MEDICAID, SELFPAY ==
[2024-05-28 13:10] LABS: C-Reactive Protein < 0.50 mg/dL (<or=0.5)
== END 2024-05-28 13:03 | disposition home or self-care (01) ==
LOC: LBO 13:03
PROVIDERS: PCP Family Medicine; Visit Provider Family Medicine
DX: M25.461 Effusion, right knee (principal)
CPT/HCPCS: 36415; 86140

== ENCOUNTER 2024-06-16 01:10 | Outpatient (CLI) | payer MEDICAID, SELFPAY ==
--- NOTE | 2024-06-16 12:43 | DI.MAMMO_ITS ---
Exam(s) MAMMO SCREENING EXAM: MAMMO SCREENING CLINICAL HISTORY: screening,z12.39 TECHNIQUE: Bilateral full field digital CC and MLO mammographic images were obtained with 3D tomosyn thesis and utilizing computer aided detection (CAD). COMPARISON: Available for comparison. FINDINGS: Masses/Architectural Distortion: No suspicious masses or areas of architectural distortion are seen. There is a biopsy clip again seen in the 12 o'clock position of the right breast posteriorly. Microcalcifications: No suspicious pleomorphic-type are seen. Skin Thickening/Nipple Retraction: None. IMPRESSION: 1. No significant interval change with no specific features of malignancy noted. 2. Unless there is more urgent need, screening mammography is recommended, as per [place] [employer] guidelines. BI-RADS Category 1 - Negative Breast Density - Category B - Scattered areas of fibroglandular density Breast density category C or D implies that the patient has dense breast tissue. Dense breast tissue is very common and is not abnormal but dense breast tissue can make it harder to find cancer on a ma mmogram. Also, dense breast tissue may increase their breast cancer risk. This information about the result of the mammogram report was provided to the patient to raise their awareness. Use this report when you speak with the patient about their risks for breast cancer, which includes their family hist ory. At that time, you may recommend for more screening tests (Ultrasound or MRI) as they might be us eful based on their risk. A negative radiographic report should not delay biopsy if a dominant or clinically suspicious mass is present. Up to ten percent of cancers are not identified on mammography. A negative report may reinforce clinical impression. Adenosis and dense breasts may obscure an underlying neoplasm. False positive reports average 6 to 10%. Patient will receive a letter notifying them of these results.
== END 2024-06-16 01:30 ==
LOC: DI 01:10
PROVIDERS: PCP Family Medicine; Visit Provider Family Medicine
DX: Z12.31 Encounter for screening mammogram for malignant neoplasm of breast (principal); R92.323 Mammographic fibroglandular density, bilateral breasts
CPT/HCPCS: 77063; 77067

== ENCOUNTER 2024-07-16 10:29 | Outpatient (REF) | payer MEDICAID, SELFPAY ==
--- NOTE | 2024-07-16 09:44 | NASALBX_PTH ---
PATIENT: Narda Arevalo LOC: [facility] U#:[id number] AGE/SX: 54/F ROOM: RE07/16/[address]: Juan C Herrera MD : 1970 BED: DIS: 07/16/2024 SPEC #: [id number] RECD: 07/16/24 17:29 STATUS: RAFAELA REYeimi #: [id number] DERECK: 07/16/24 09:[address]: Juan C Herrera DEPT: Surgical Specimen RECD BY: Brionna Zhang ENTERED: 07/16/24 17:30 SP TYPE: NASALBX OTHR DR: Fadi Cade DO Tissues: 1 - MUCOSA, NOS Procedures: GROSS AND MICRO LEVEL 4 Comments: [id number]
== END 2024-07-16 10:30 | disposition home or self-care (01) ==
LOC: LBN 10:29
PROVIDERS: PCP Family Medicine; Visit Provider Otolaryngology
DX: D36.7 Benign neoplasm of other specified sites (principal)
CPT/HCPCS: 88305

== ENCOUNTER 2024-08-13 00:29 | Outpatient (CLI) | payer MEDICAID, SELFPAY ==
--- NOTE | 2024-08-13 07:15 | DI.RAD_ITS ---
Exam(s) XR SACROILIAC JOINTS XR LUMBAR SPINE COMP W FLEX/EX EXAM: XR LUMBAR SPINE COMP W FLEX/EX CLINICAL HISTORY: Crohn's , evaluate for AK,LOW BACK PAIN,M54.50. TECHNIQUE: 2D digital imaging was performed. The lumbar spine including flexion and extension views . Five views of the SI joints. COMPARISON: CT CT ABDOMEN PELVIS W from 06/15/2023 CR XR SACROILIAC JOINTS from 08/13/2024 FINDINGS: SI joints: Mild inferior spurring. Mild bilateral sclerosis on both on the iliac sides of the SI kurt ints. No evidence of bony bridging. BONES: No fracture or destructive lesion. Vertebral body heights are maintained. Bilateral L5 spon dylolysis and slight L5-S1 spondylolisthesis. No significant subluxation with flexion or extension. DISKS: Intervertebral disc spaces are maintained. ALIGNMENT: No scoliosis. SOFT TISSUE: Normal. IMPRESSION: Five spondylolysis and slight L5-S1 spondylolisthesis without subluxation on flexion or extension. Mild sclerosis adjacent to the SI joints and mild spurring. Findings could be secondary to sacroiliit is versus degenerative changes. DATA REPOSITORY: RADIATION DOSE DELIVERED:
== END 2024-08-13 00:49 ==
LOC: DI 00:29
PROVIDERS: PCP Family Medicine; Visit Provider Family Medicine
DX: M43.17 Spondylolisthesis, lumbosacral region (principal); M41.26 Other idiopathic scoliosis, lumbar region
CPT/HCPCS: 72114; 72202

== ENCOUNTER 2024-08-13 11:47 | Outpatient (CLI) | payer MEDICAID, SELFPAY ==
[2024-08-14 09:06] LABS: Lyme Ab w Rflx to Lyme Confirm Negative (Negative)
[2024-08-16 16:11] LABS: Anaplasma phagocytophilum Negative (Negative); B. miyamotoi PCR Negative (Negative); Babesia divergens/MO-1 Negative (Negative); Babesia duncani Negative (Negative); Babesia microti Negative (Negative); Ehrlichia chaffeensis Negative (Negative); Ehrlichia ewingii/canis Negative (Negative); Ehrlichia muris eauclairensis Negative (Negative)
== END 2024-08-13 11:48 | disposition home or self-care (01) ==
LOC: LBO 11:48
PROVIDERS: PCP Family Medicine; Visit Provider Family Medicine
DX: M13.0 Polyarthritis, unspecified (principal)
CPT/HCPCS: 36415; 87798; 86618